=== PATIENT | male | born 1975 | race Caucasian/White ===

== ENCOUNTER 2019-04-30 16:24 | Emergency (ER) | payer MEDICAID ==
[~2019-04-30] VITALS: Ht 175.3 cm; Wt 99.8 kg
[~2019-04-30 16:24] MED LIST: ALBU0.0952 IH; FLUT1DSK2 IH
[2019-04-30 16:41] VITALS: BP 130/69
--- NOTE | 2019-04-30 17:01 | NUR ---
AAO X4 PT WHEEL CHAIR ASSISTED TO CHAIR B BIB SELF W/ C/O CHRONIC BL ANKLE PAIN/SWELLING WORSE TODAY. PER PT HE HAD INTERMITTENT RT ANKLE PAIN X 3 YRS AND LT ANKLE SWELLING X1 YR. 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
[2019-04-30] MEDS ORDERED: cefTRIAXone 1,000 MG in LIDOCAINE MPF 1% - 5 mL VIAL 2.1 ML IM ONE (17:50)
[2019-04-30] MEDS ORDERED: HYDROcodone/APAP 5/325 MG 1 TAB TAB PO ONE (18:10)
[2019-04-30] MEDS ORDERED: KETOROLAC 60 MG/2 ML VIAL IM ONE (18:10)
[2019-04-30 19:00] VITALS: BP 122/71
--- NOTE | 2019-04-30 19:00 | NUR ---
Patient discharged with v/s stable. Written and verbal after care instructions given and explained. Patient alert, oriented and verbalized understanding of instructions. Wheel Chair Assisted with to car. All questions addressed prior to discharge. ID band removed. Patient advised to follow up with PMD. Rx of [place], ibuprofen given. Patient educated on indication of medication including possible reaction and side effects. Opportunity to ask questions provided and answered.
== END 2019-04-30 19:00 | disposition home or self-care (01) ==
LOC: MED 16:24
DX: L03.116 Cellulitis of left lower limb (principal); L03.115 Cellulitis of right lower limb; F17.210 Nicotine dependence, cigarettes, uncomplicated; J45.909 Unspecified asthma, uncomplicated; F15.10 Other stimulant abuse, uncomplicated; Z79.899 Other long term (current) drug therapy
CPT/HCPCS: 73610; 73630; 96372; 99283; J0696; J1885; J2001

== ENCOUNTER 2019-05-03 11:51 | Inpatient (IN) | payer MEDICAID ==
[~2019-05-03] VITALS: Ht 170.2 cm; Wt 96.6 kg
[~2019-05-03 11:51] MED LIST changes: +INDOMETHACIN 25 MG CAP PO SCH
[2019-05-03 12:00] VITALS: BP 126/64
[2019-05-03] MEDS ORDERED: HYDR-5123 PO (12:13)
--- NOTE | 2019-05-03 12:18 | NUR ---
c/o bilateral lower leg pain/cellulitis off and on x 3 months with pain 10/10. patient states he was discharged from here 3 days ago and told to continue taking his antibiotics. erythema and edema to bilateral extremeties. full range of motion. palpable pedal pulses. cap refill < 2 seconds. aa0x4. bed is dwon, locked, bed rail x 1, ermd to see pt. candice
--- NOTE | 2019-05-03 12:35 | NUR ---
ER md dr Rodas at bedside
[2019-05-03 13:31] LABS: EOSINOPHILS # (AUTO) 0.3 K/uL (0-0.4); HEMOGLOBIN 11.9 g/dL (12.0-18.0); MEAN CORPUSCULAR HEMOGLOBIN 31 pg (27-31); MONOCYTES # (AUTO) 0.7 K/uL (0.8-1.0); NEUTROPHILS # (AUTO) 3.8 K/uL (1.8-7.7)
[2019-05-03 13:35] LABS: BASOPHILS % (AUTO) 0.5 % (0.0-2.0); EOSINOPHILS % (AUTO) 4.5 % (0.0-4.0); HEMATOCRIT 35.4 % (36-52); LYMPHOCYTES # (AUTO) 1.5 K/uL (2.0-11.5); LYMPHOCYTES % (AUTO) 23.1 % (20.5-51.1); MEAN CORPUSCULAR HGB CONC 34 g/dL (33-37); MEAN CORPUSCULAR VOLUME 92.3 fL (80-94); MONOCYTES % (AUTO) 11.5 % (1.7-9.3); NEUTROPHILS % (AUTO) 60.4 % (42.2-75.2); PLATELET COUNT (AUTO) 301 K/uL (140-450); RED BLOOD CELL COUNT(AUTO) 3.84 MIL/uL (4.20-6.10); RED CELL DISTRIBUTION WIDTH 13.9 % (11.6-13.7); WHITE BLOOD COUNT (AUTO) 6.3 K/uL (4.8-10.8)
[2019-05-03 14:09] LABS: ANION GAP 11.1 (8-16); CARBON DIOXIDE 28.2 mmol/L (21-32); CREATININE 0.7 mg/dL (0.7-1.3); POTASSIUM 3.3 mmol/L (3.5-5.1)
[2019-05-03 14:17] LABS: ALBUMIN 2.9 g/dL (3.4-5.0); TOTAL BILIRUBIN 0.2 mg/dL (0.0-1.0)
[2019-05-03] MEDS ORDERED: oxyCODONE/APAP 5/325 MG 1 TAB TAB PO ONE (14:45)
--- NOTE | 2019-05-03 16:34 | NUR ---
VSS AT THIS TIME. AA0X4
[2019-05-03] MEDS ORDERED: VANCOMYCIN 1GM/DEXT 5% PREMIX 200 ML IV ONE (17:10)
[2019-05-03] MEDS ORDERED: VANCOMYCIN PER PHARMACY MC PRN ×2 (17:10→20:55)
[2019-05-03] MEDS ORDERED: DOCUSATE SODIUM 100 MG GELCAP PO PRN (17:20)
[2019-05-03] MEDS ORDERED: ACETAMINOPHEN 325 MG TAB PO PRN (17:20)
[2019-05-03] MEDS ORDERED: ONDANSETRON 4 MG/2 ML VIAL IM/IVP PRN (17:20)
[2019-05-03] MEDS ORDERED: VANCOMYCIN 1,000 MG in DEXTROSE 5% 250 ML IV ONE (17:25)
[2019-05-03] MEDS ORDERED: VANCOMYCIN 1,000 MG VIAL ONE (17:25)
[2019-05-03] MEDS: NACL 0.9% 1,000 ML IV SCH (17:51)
--- NOTE | 2019-05-03 18:06 | NUR ---
Pt transferred to Med/Surg via 120A .
--- NOTE | 2019-05-03 18:15 | NUR ---
report given to christa johnson. pt vitals stable at htis moment.
[2019-05-03 19:30] VITALS: BP 125/64
--- NOTE | 2019-05-03 19:30 | NUR ---
Admitted from ER TO [facility] , with chief complaint of RECURRENT BILATERAL ANKLE PAIN WITH PAIN AND SWELLING , 43 y/o ,Male, Cooperative, AWAKE, A/OX4. RESPIRATION EVEN AND UNLABORED. IV VANCOMYCIN INFUSING AT 165 ML/HR, LEFT HAND G20. NOTED SEVERAL TATTOOS IN THE ARMS, LEGS AND BODY. BILATERAL FEET WITH SWELLING, TENDER TO TOUCH. PATIENT AT THIS TIME USES CRUTCHES WHEN WALKING DUE TO PAIN AND SWELLING OF FEET. HEAD TO TOE ASSESSMENT DONE WITH CHERRI CORONADO. SKIN INTACT.oriented to call light, bed, phone,television, bathroom, smoking policy, visiting hours, procedures, ID bracelet on. Belongings list checked.
--- NOTE | 2019-05-03 19:45 | NUR ---
Patient's Plan of Care was discussed and reviewed with ANALYSIS TESTER: MALIK
[2019-05-03 20:04] LABS: PROTHROMBIN TIME 9.5 secs (10.8-13.4)
[2019-05-03] MEDS ORDERED: POTASSIUM CHLORIDE 10 MEQ TABER PO SCH (20:30)
[2019-05-03] MEDS ORDERED: ALBUTEROL SULFATE/IPRATROPIU 3 ML SOL IH PRN (20:55)
[2019-05-03 21:19] LABS: MAGNESIUM 1.9 mg/dL (1.8-2.4)
[2019-05-03 22:02] LABS: FREE T4 (FREE THYROXINE) 0.96 ng/dL (0.76-1.46); THYROID STIMULATING HORMONE 1.86 uIU/mL (0.34-3.74)
[2019-05-03 22:14] LABS: PHOSPHORUS 4.4 mg/dL (2.5-4.9)
[2019-05-04] VITALS: BP 120/60
--- NOTE | 2019-05-04 | NUR ---
SLEEPING COMFORTABLY IN BED.
[2019-05-04 01:34] LABS: BARBITURATE, URINE NEG. ng/ml (NEG <=200); BENZODIAZEPINE, URINE NEG. ng/mL (NEG <=200); CANNABINOID, URINE NEG. ng/mL (NEG <=50); COCAINE, URINE NEG. ng/mL (NEG <=300); OPIATE, URINE POS. ng/mL (NEG <=2000); PHENCYCLIDINE SCREEN,URINE NEG. ng/mL (NEG <=25)
[2019-05-04 03:45] VITALS: BP 116/68
[2019-05-04 04:17] LABS: APPEARANCE,URINE CLEAR (CLEAR); BILIRUBIN,URINE NEGATIVE (NEGATIVE); BLOOD, URINE NEGATIVE (NEGATIVE); COLOR,URINE YELLOW (YELLOW); LEUKOCYTE ESTERASE ,URINE NEGATIVE (NEGATIVE); NITRITE, URINE NEGATIVE (NEGATIVE); UGLUCOSE NEGATIVE (NEGATIVE)
[2019-05-04] MEDS: MORPHINE SULFATE 4 MG/ML SYR IVP PRN ×4 (04:46→22:07)
[2019-05-04] MEDS: NACL 0.9% 1,000 ML IV SCH ×2 (04:46→15:24)
[2019-05-04 06:44] LABS: BASOPHILS % (AUTO) 0.4 % (0.0-2.0); EOSINOPHILS # (AUTO) 0.3 K/uL (0-0.4); EOSINOPHILS % (AUTO) 3.6 % (0.0-4.0); HEMATOCRIT 36.5 % (36-52); LYMPHOCYTES # (AUTO) 1.4 K/uL (2.0-11.5); LYMPHOCYTES % (AUTO) 18.5 % (20.5-51.1); MEAN CORPUSCULAR HEMOGLOBIN 30 pg (27-31); MEAN CORPUSCULAR HGB CONC 33 g/dL (33-37); MEAN CORPUSCULAR VOLUME 92.9 fL (80-94); MONOCYTES # (AUTO) 0.7 K/uL (0.8-1.0); MONOCYTES % (AUTO) 8.8 % (1.7-9.3); NEUTROPHILS # (AUTO) 5.3 K/uL (1.8-7.7); NEUTROPHILS % (AUTO) 68.7 % (42.2-75.2); PLATELET COUNT (AUTO) 301 K/uL (140-450); RED BLOOD CELL COUNT(AUTO) 3.93 MIL/uL (4.20-6.10); RED CELL DISTRIBUTION WIDTH 14.1 % (11.6-13.7); WHITE BLOOD COUNT (AUTO) 7.7 K/uL (4.8-10.8)
[2019-05-04 07:08] LABS: ANION GAP 11.5 (8-16); CREATININE 0.7 mg/dL (0.7-1.3); POTASSIUM 3.5 mmol/L (3.5-5.1)
[2019-05-04 07:18] LABS: MAGNESIUM 1.8 mg/dL (1.8-2.4); PHOSPHORUS 4.4 mg/dL (2.5-4.9)
[2019-05-04 07:20] LABS: CHOL/HDL RATIO 4.9 (1-4.5)
--- NOTE | 2019-05-04 07:20 | NUR ---
ABLE TO SLEEP WELL. ENDORSED TO AM NURSE FOR CONTINUITY OF CARE.
--- NOTE | 2019-05-04 07:21 | NUR ---
PT HAS HEADPHONES ON AND IS ASLEEP. NOTED THE IV ON L HAND AND INFUSING NS AT 100ML. BLE EXPOSED. PER RN, PT DOES NOT LIKE HIS FEET COVERED, EVEN SHEET HURTS HIS FEET. WILL CONTINUE TO MONITOR PT.
[2019-05-04 08:00] VITALS: BP 136/70
--- NOTE | 2019-05-04 08:00 | NUR ---
AXOX4. INTRODUCED MYSELF AND UPDATED THE BOARD. V/S WITHIN NORMAL RANGE. PAIN IS 8/10 IN BLE. WILL MEDICATE WITH MORNING MEDS. PER PT, HARDER TO AMBULATE. USES CRUTCHES/CANE TO AMBULATE. SKIN INTACT. BLE SWOLLEN AND HOT TO TOUCH. PT DOES HAVE A GASH/ABRASION ON HIS L CHEEK, JUVENTINO. IV HAS INFILTRATED. WILL START A NEW IV. PLAN FOR TODAY: NEED TO COLLECT STOOL SAMPLE FOR OCCULT BLOOD, CT W/ IV CONTRAST BLE.
--- NOTE | 2019-05-04 08:10 | NUR ---
PATIENT HAS BEEN SCREENED AND CATEGORIZED LOW NUTRITION RISK. PATIENT WILL BE SEEN WITHIN 7 DAYS OF ADMISSION. 05/10/[address]
[2019-05-04] MEDS: INDOMETHACIN 25 MG CAP PO SCH ×3 (08:54→16:59)
[2019-05-04] MEDS: LACTOBACILLUS RHAMNOSUS GG 1 EACH CAP PO SCH (08:54)
[2019-05-04] MEDS: methylPREDNISolone SS 40 MG/ML VIAL IVP SCH ×2 (08:58→21:38)
[2019-05-04] MEDS ORDERED: NON-FORMULARY ITEM (Fluticasone/Salmeterol* (Advair 250-50 Diskus*) 1 DSK) IH SCH (09:00)
--- NOTE | 2019-05-04 09:40 | NUR ---
ADMINISTERED ORAL MEDS. IV NOT WORKING, RESTARTED ANOTHER IV ACCESS 22G ON L HAND. ADMINISTERED ALL IV MEDS AND HEPARIN, SUBQ. ALSO STARTED AND 20G ON THE R FA FOR THE CT W/ IV CONTRAST. PT TOLERATED WELL. WILL CONTINUE TO MONITOR PT.
--- NOTE | 2019-05-04 09:51 | NUR ---
RADIOLOGY CALLED. WANT TO TAKE PT AT [address] W/ CONTRAST OF BLE. WILL HAVE CONSENT SIGNED. PT AWARE.
[2019-05-04 12:00] VITALS: BP 180/87
[2019-05-04 16:00] VITALS: BP 149/77
--- NOTE | 2019-05-04 16:05 | NUR ---
SW attempted to conduct assessment 2x. Patient is with medical staff. SW will attempt to follow up to complete assessment.
--- NOTE | 2019-05-04 19:22 | NUR ---
RECEIVED REPORT FROM DAYSHIFT RN AT BEDSIDE FOR CONTINUITY OF CARE, PT IN STABLE CONDITION.
--- NOTE | 2019-05-04 19:22 | NUR ---
ENDORSED PT TO THE MACHINE EGG WASHER NURSE AT BEDSIDE. PT IS ASLEEP. PT IN STABLE CONDITION.
[2019-05-04 20:00] VITALS: BP 122/63
--- NOTE | 2019-05-04 20:00 | NUR ---
CT OF ANGIO ON BILATERAL EXTREMITIES WAS D/C'D AT THIS TIME. PT IN BED WITH EYES CLOSED LISTENING TO HEADPHONES, V/S FOLLOWS T 97.3 P 68 R 18 B/P 122/63 02 97% ON ROOM AIR. IV SITE ON R HAND 22G INTACT, ASYMPTOMATIC AND RUNNING N/S AT 60MLS/HR. PT HAS NO S/S OF PAIN OR DISTRESS NOTED.
--- NOTE | 2019-05-04 21:00 | NUR ---
PT GIVEN ORDERED SOLUMEDROL AND HEPARIN. ALL REQUESTED NEEDS ATTENDED BY STAFF AND CALL COTTON IN REACH.
--- NOTE | 2019-05-04 21:00 | NUR ---
PT IN LOW BED SIDE RAILS UP X2, PT GIVEN DUE MEDS OF SOLUMEDROL AND HEPARIN. PT SAYS PAIN IS TOLERABLE AT THIS TIME.
--- NOTE | 2019-05-04 22:10 | NUR ---
PT BACK ON REGULAR DIET, SANDWICH GIVEN REQUESTED. PT C/O SEVERE GENERALIZE PAIN, PT GIVEN IVP MORPHINE, WILL MONITOR FOR EFFECT. BED LOW SIDE RAILS UP X2 AND CALL COTTON IN REACH. IV SITE ON R HAND INTACT AND RUNNING N/S AT 60MLS/HR ORDERED.
[2019-05-05] VITALS: BP 137/75
--- NOTE | 2019-05-05 00:40 | NUR ---
PT IN BED V/S FOLLOWS T 97 P 66 R 18 B/P 137/75 02 97% ON ROOM AIR. BED LOW SIDE RAILS UP X2 AND CALL COTTON IN REACH.
[2019-05-05] MEDS: MORPHINE SULFATE 4 MG/ML SYR IVP PRN (06:02)
--- NOTE | 2019-05-05 06:15 | NUR ---
PT GIVEN IVP MORPHINE ORDERED FOR SEVERE PAIN. AND COLACE FOR CONSTIPATION. PT REQUESTED A SANDWICH, HE WAS ABLE TO AMBULATE TO TOILET AND PROVIDE STOOL SAMPLE WHICH WAS SWIPED FOR OCCULT BLOOD AND SENT TO LAB.
--- NOTE | 2019-05-05 07:20 | NUR ---
RECEIVED BEDSIDE REPORT FROM AUTOMOTIVE WHOLESALE PARTS ADVISOR NURSE ALEXI. PT IS AWAKE AND ALERT, TALKING WITH DR SEBASTIAN AT THIS TIME. PT IS IN NO ACUTE DISTRESS, ON ROOM AIR, SKIN IS INTACT. BLE'S DO NOT APPEAR SWOLLEN OR RED, BUT PT IS C/O BLE PAIN. TWO IV SITES NOTED: L HAND 22 G, AND R FA 20 G. INFUSING NS 60 ML/HR. CALL LIGHT IS WITHIN REACH. WILL CONTINUE TO MONITOR.
[2019-05-05] MEDS: NACL 0.9% 1,000 ML IV SCH (07:26)
[2019-05-05 07:49] LABS: BASOPHILS % (AUTO) 0.1 % (0.0-2.0); EOSINOPHILS % (AUTO) 0.1 % (0.0-4.0); HEMOGLOBIN 13.7 g/dL (12.0-18.0); LYMPHOCYTES # (AUTO) 0.9 K/uL (2.0-11.5); LYMPHOCYTES % (AUTO) 7.4 % (20.5-51.1); MEAN CORPUSCULAR HEMOGLOBIN 31 pg (27-31); MEAN CORPUSCULAR HGB CONC 33 g/dL (33-37); MEAN CORPUSCULAR VOLUME 91.8 fL (80-94); MONOCYTES # (AUTO) 0.5 K/uL (0.8-1.0); NEUTROPHILS # (AUTO) 10.3 K/uL (1.8-7.7); NEUTROPHILS % (AUTO) 88.4 % (42.2-75.2); PLATELET COUNT (AUTO) 371 K/uL (140-450); RED BLOOD CELL COUNT(AUTO) 4.47 MIL/uL (4.20-6.10); RED CELL DISTRIBUTION WIDTH 13.8 % (11.6-13.7); WHITE BLOOD COUNT (AUTO) 11.7 K/uL (4.8-10.8)
[2019-05-05 07:58] LABS: ANION GAP 13.2 (8-16); CARBON DIOXIDE 26.8 mmol/L (21-32); CREATININE 0.8 mg/dL (0.7-1.3)
[2019-05-05 08:00] VITALS: BP 135/70
--- NOTE | 2019-05-05 09:55 | NUR ---
PT IS GETTING A CHEST XRAY AT THIS TIME
[2019-05-05] MEDS: LACTOBACILLUS RHAMNOSUS GG 1 EACH CAP PO SCH (10:22)
--- NOTE | 2019-05-05 10:22 | NUR ---
TOLERATED INCENTIVE SPIROMETRY THERAPY WELL WITHOUT INCIDENT ENCOURAGED PATIENT WITH ACKNOWLEDGEMENT TO USE INCENTIVE SPIROMETRY EVERY 1-2 HOURS WHILE AWAKE
[2019-05-05] MEDS: INDOMETHACIN 25 MG CAP PO SCH ×3 (10:23→16:14)
--- NOTE | 2019-05-05 10:38 | NUR ---
AM MEDS ADMINISTERED, PT TOLERATED WELL
[2019-05-05] MEDS: HYDROcodone/APAP 5/325 MG 1 TAB TAB PO PRN ×3 (10:59→22:26)
--- NOTE | 2019-05-05 13:07 | NUR ---
PT CONSENT OBTAINED FOR CT ANGIOGRAM OF ABDOMEN/PELVIS
--- NOTE | 2019-05-05 14:02 | NUR ---
PT TAKEN FOR CT ANGIOGRAM OF ABD/PELVIS Addendum: 05/05/19 at 1948 by Ivonne Beasley RN CHARTED ON WRONG PT Addendum: 05/05/19 at 1949 by Ivonne Beasley RN IGNORE LAST NOTE, THIS IS THE CORRECT PT.
--- NOTE | 2019-05-05 14:20 | NUR ---
PT IS BACK FROM CT ANGIO STUDY Addendum: 05/05/19 at 1948 by Ivonne Beasley RN CHARTED ON WRONG PT Addendum: 05/05/19 at 1949 by Ivonne Beasley RN IGNORE LAST NOTE, THIS IS THE CORRECT PT.
[2019-05-05 15:07] LABS: FOLIC ACID 14.7 ng/mL (>3.0)
[2019-05-05] MEDS ORDERED: MORPHINE SULFATE 4 MG/ML SYR IVP ONE (17:35)
--- NOTE | 2019-05-05 18:00 | NUR ---
PT IS HAVING US OF THE LLE AT THIS TIME.
[2019-05-05] MEDS ORDERED: CLINDAMYCIN 600 MG/4 ML VIAL ONE (18:19)
[2019-05-05] MEDS: CLINDAMYCIN 300 MG in DEXTROSE 5% 50 ML IV SCH (18:29)
--- NOTE | 2019-05-05 19:22 | NUR ---
PT ENDORSED TO INGREDIENT SPECIALIST NURSE IN STABLE CONDITION
--- NOTE | 2019-05-05 19:22 | NUR ---
RECEIVED ENDORSEMENT FORM GRACIE HARLEY DAYSHIFT NURSE AT BEDSIDE FOR CONTINUITY OF CARE, PT IN STABLE CONDITION.
[2019-05-05 20:00] VITALS: BP 133/72
--- NOTE | 2019-05-05 20:00 | NUR ---
PT IN LOW BED WITH SIDE RAILS UP X2. PT LOWER EXTREMITIES ELEVATED AND CRUTCHES AT BEDSIDE. IV SITE ON RIGHT AC AND LEFT HAND INTACT AND FLUSHED PATENT. V/S FOLLOWS T 98.9 P 65 R 18 B/P 133/72 02 100% ON ROOM AIR. ALL REQUESTED NEEDS ATTENDED AND CALL COTTON IN REACH.
--- NOTE | 2019-05-05 21:00 | NUR ---
PT RECEIVED ORDERED HEPARIN, FOR DVT PREVENTION, PLATELETS ARE 371.
--- NOTE | 2019-05-05 22:30 | NUR ---
PT C/O MODERATE PAIN IN LOWER LEGS, GIVEN NORCO PO/PRN ORDERED. ALL REQUESTED NEEDS ATTENDED BY STAFF.
--- NOTE | 2019-05-06 | NUR ---
PT GIVEN ORDERED CLEOCIN HUNG AND RUNNING ORDERED. IV SITE ON LEFT HAND INTACT AND FLUSHED PATENT. V/S FOLLOWS T 97.0 P 74 R 18 B/P 114/45 02 97% ON ROOM AIR.
[2019-05-06] MEDS ORDERED: CLINDAMYCIN 600 MG/4 ML VIAL ONE ×2 (00:04→06:24)
[2019-05-06] MEDS: CLINDAMYCIN 300 MG in DEXTROSE 5% 50 ML IV SCH ×4 (00:13→17:23)
--- NOTE | 2019-05-06 03:25 | NUR ---
PT WOKE UP AND C/O OF MODERATE PAIN 6/10 IN BILATERAL ANKLES , PT GIVEN 1 TAB NORCO PO/PRN. PT ALSO REQUESTED A SANDWICH WHICH WAS PROVIDED. IV SITE INTACT AND RUNNING FLUIDS ORDERED. BED LOW CALL COTTON IN REACH AND CRUTCHES AT BEDSIDE.
[2019-05-06 04:00] VITALS: BP 129/68
[2019-05-06] MEDS: HYDROcodone/APAP 5/325 MG 1 TAB TAB PO PRN ×5 (04:19→22:48)
[2019-05-06] MEDS: NACL 0.9% 1,000 ML IV SCH (07:16)
--- NOTE | 2019-05-06 07:25 | NUR ---
RECEIVED BEDSIDE REPORT FROM SOFTWARE DESIGN ENGINEER NURSE, PT IS ASLEEP, NO S/S OF ACUTE DISTRESS, NO SOB. FALL PRECAUTIONS IN PLACE. IV INFUSING NS 10 ML/HR VIA THE L HAND 20 G. SKIN IS INTACT. CALL LIGHT IS WITHIN REACH.
[2019-05-06 07:34] LABS: BASOPHILS # (AUTO) 0.1 K/uL (0.00-0.22); BASOPHILS % (AUTO) 0.7 % (0.0-2.0); EOSINOPHILS # (AUTO) 0.2 K/uL (0-0.4); EOSINOPHILS % (AUTO) 2.5 % (0.0-4.0); HEMATOCRIT 37.7 % (36-52); HEMOGLOBIN 12.6 g/dL (12.0-18.0); LYMPHOCYTES # (AUTO) 2.2 K/uL (2.0-11.5); LYMPHOCYTES % (AUTO) 25.7 % (20.5-51.1); MEAN CORPUSCULAR HEMOGLOBIN 31 pg (27-31); MEAN CORPUSCULAR HGB CONC 33 g/dL (33-37); MEAN CORPUSCULAR VOLUME 92.9 fL (80-94); MONOCYTES # (AUTO) 0.9 K/uL (0.8-1.0); MONOCYTES % (AUTO) 10.1 % (1.7-9.3); NEUTROPHILS # (AUTO) 5.3 K/uL (1.8-7.7); PLATELET COUNT (AUTO) 346 K/uL (140-450); RED BLOOD CELL COUNT(AUTO) 4.06 MIL/uL (4.20-6.10); RED CELL DISTRIBUTION WIDTH 14.2 % (11.6-13.7); WHITE BLOOD COUNT (AUTO) 8.7 K/uL (4.8-10.8)
[2019-05-06 07:44] LABS: ANION GAP 9.5 (8-16); CREATININE 0.8 mg/dL (0.7-1.3); POTASSIUM 3.5 mmol/L (3.5-5.1)
[2019-05-06 08:00] VITALS: BP 140/72
[2019-05-06 08:01] LABS: MAGNESIUM 1.9 mg/dL (1.8-2.4); PHOSPHORUS 4.2 mg/dL (2.5-4.9)
[2019-05-06] MEDS: LACTOBACILLUS RHAMNOSUS GG 1 EACH CAP PO SCH (08:44)
[2019-05-06] MEDS: INDOMETHACIN 25 MG CAP PO SCH ×3 (12:41→17:22)
--- NOTE | 2019-05-06 13:15 | NUR ---
PRN NORCO ADMINISTERED FOR LLE PAIN, WILL REASSESS WITHIN HOUR.
--- NOTE | 2019-05-06 15:20 | NUR ---
PT IS AWAKE, LOOKING AT HIS PHONE AND LISTENING TO HEADPHONES. NO S/S OF DISTRESS.
[2019-05-06 16:00] VITALS: BP 135/75
--- NOTE | 2019-05-06 17:33 | NUR ---
PT IS ASLEEP COMFORTABLY, IV CLEOCIN INFUSING.
--- NOTE | 2019-05-06 18:40 | NUR ---
PT C/O 710 PAIN IN THE LLE, REPORTS IMPROVED PAIN IN THE RLE. MEDICATED PT WITH PRN NORCO, WILL REASSESS.
--- NOTE | 2019-05-06 19:25 | NUR ---
REPORT RECEIVED FROM RN DAYSHIFT NURSE AT BEDSIDE, PT IN STABLE CONDITION.
--- NOTE | 2019-05-06 19:25 | NUR ---
PT ENDORSED TO ROLLER STRUCTURAL MILL NURSE IN STABLE CONDITION
--- NOTE | 2019-05-06 20:00 | NUR ---
PT IN BED NO C/O VOICED AT THIS TIME, LUNGS CLEAR BOWEL SOUNDS POSITIVE ALL 4 QUADS, V/S FOLLOWS T 97.9 P 73 R 18 B/P 139/73 02 97% ON ROOM AIR. IV FLUIDS N/S RUNNING AT 10MLS/HR. IV SITE ON RIGHT AC INTACT AND FLUSHED PATENT. IV SITE ON LEFT HAND INTACT AND FLUSHED PATENT. ALL REQUESTED NEEDS ATTENDED AND CALL COTTON IN REACH.
[2019-05-06] MEDS ORDERED: ATORVASTATIN 20 MG TAB PO SCH (21:00)
--- NOTE | 2019-05-06 21:00 | NUR ---
ALL SCHEDULED AND DUE MEDS GIVEN (LIPITOR AND HEPARIN). NO C/O VOICED BY PT BED LOW AND CALL COTTON IN REACH.
--- NOTE | 2019-05-06 22:48 | NUR ---
PT C/O MODERATE PAIN IN LEFT ANKLE, GIVEN PO/PRN NORCO, WILL MONITOR FOR EFFECT.
--- NOTE | 2019-05-07 | NUR ---
PT IN LOW BED ASLEEP. V/S FOLLOWS T 97.4 P 66 R 18 B/P 124/58 02 98% ON ROOM AIR. CLEOCIN HUNG AND RUNNING ORDERED.
[2019-05-07] MEDS: CLINDAMYCIN 300 MG in DEXTROSE 5% 50 ML IV SCH ×4 (00:30→17:43)
[2019-05-07 04:00] VITALS: BP 138/76
[2019-05-07] MEDS: HYDROcodone/APAP 5/325 MG 1 TAB TAB PO PRN ×4 (04:32→15:46)
--- NOTE | 2019-05-07 04:40 | NUR ---
PT WOKE UP WITH C/O OF MODERATE PAIN 01/22, PT GIVEN PO/PRN NORCO WELL REQUESTED SANDWICH. WILL MONITOR FOR PAIN RELIEF, BED LOW AND CALL COTTON IN REACH.
--- NOTE | 2019-05-07 06:32 | NUR ---
PT SLEEPING IN BED NO S/S OF PAIN OR DISTRESS NOTED. CLEOCIN HUN G AND RUNNING AT 100MLS/HR ORDERED.
[2019-05-07 06:44] LABS: ANION GAP 11.1 (8-16); CARBON DIOXIDE 29.5 mmol/L (21-32); POTASSIUM 3.6 mmol/L (3.5-5.1)
[2019-05-07] MEDS ORDERED: METH4TAB3 PO (06:45)
[2019-05-07 06:46] LABS: MAGNESIUM 1.9 mg/dL (1.8-2.4); PHOSPHORUS 4.1 mg/dL (2.5-4.9)
[2019-05-07 06:51] LABS: BASOPHILS # (AUTO) 0.1 K/uL (0.00-0.22); BASOPHILS % (AUTO) 0.7 % (0.0-2.0); EOSINOPHILS # (AUTO) 0.3 K/uL (0-0.4); EOSINOPHILS % (AUTO) 3.1 % (0.0-4.0); HEMATOCRIT 38.3 % (36-52); HEMOGLOBIN 12.9 g/dL (12.0-18.0); LYMPHOCYTES # (AUTO) 1.8 K/uL (2.0-11.5); LYMPHOCYTES % (AUTO) 21.6 % (20.5-51.1); MEAN CORPUSCULAR HEMOGLOBIN 31 pg (27-31); MEAN CORPUSCULAR HGB CONC 34 g/dL (33-37); MEAN CORPUSCULAR VOLUME 92.7 fL (80-94); MONOCYTES # (AUTO) 0.9 K/uL (0.8-1.0); MONOCYTES % (AUTO) 10.4 % (1.7-9.3); NEUTROPHILS # (AUTO) 5.5 K/uL (1.8-7.7); NEUTROPHILS % (AUTO) 64.2 % (42.2-75.2); PLATELET COUNT (AUTO) 360 K/uL (140-450); RED BLOOD CELL COUNT(AUTO) 4.13 MIL/uL (4.20-6.10); RED CELL DISTRIBUTION WIDTH 14.3 % (11.6-13.7); WHITE BLOOD COUNT (AUTO) 8.5 K/uL (4.8-10.8)
[2019-05-07] MEDS: NACL 0.9% 1,000 ML IV SCH (07:16)
--- NOTE | 2019-05-07 07:30 | NUR ---
RECEIVED REPORT FROM BLADE GRADER OPERATOR NURSE. PT AROUSABLE TO NAME, AAOX4, NO C/O PAIN AT THIS TIME. IV ON LT HAND 22 GA AND RT FA 20 GA, BOTH FLUSHING WITH NO RESISTANCE. RESPIRATIONS EVEN AND UNLABORED ON RA. ABD SOFT, BS ACTIVE THROUGHOUT. PT ON FALL RISK PRECAUTIONS. SAFETY MEASURES IN PLACE, CALL LIGHT WITHIN REACH. REVIEWED POC WITH PT, PT VERBALIZED UNDERSTANDING.
[2019-05-07] MEDS: LACTOBACILLUS RHAMNOSUS GG 1 EACH CAP PO SCH (08:30)
[2019-05-07] MEDS: INDOMETHACIN 25 MG CAP PO SCH ×3 (08:31→17:43)
--- NOTE | 2019-05-07 08:33 | NUR ---
PT GIVEN MORNING MEDICATIONS PER ORDER AND NORCO PER ORDER FOR PAIN RATE LEVEL 5/10 TO BILATERAL FEET. WILL REASSESS WITHIN 1 HOUR.
--- NOTE | 2019-05-07 10:40 | NUR ---
PT TOLERATED PHYSICAL THERAPY WELL. PT GIVEN ICE PACK FOR LT LEG FOR LEVEL 2/10 PAIN. PER PT "PAIN IS TOLERABLE".
--- NOTE | 2019-05-07 11:20 | NUR ---
Psychiatric Nurse Note: Per patient, he is in agreement with home health services for physical therapy and is also agreeable with any home health that is able to accept his health insurance ([facility]). I confirmed with patient his home address, [id number] [address]. I faxed inquiry to [facility], phone number . I faxed 's order for fww to [facility], phone number , Darrell . Addendum: 05/07/19 at 1127 by Amberly NEVES I faxed physical therapy notes, HNP, and face sheet to [facility].
--- NOTE | 2019-05-07 13:16 | NUR ---
Tool Grinder Operator Surface Note: Per Darrell from [facility] , he will deliver fww today around 3pm. Per Erica from [facility] , Henrry is still reviewing inquiry and will let me know if they can accept patient or not.
[2019-05-07] MEDS ORDERED: NAPR-54 PO (14:56)
[2019-05-07 16:00] VITALS: BP 130/76
--- NOTE | 2019-05-07 16:00 | NUR ---
WALKER DELIVERED IN PT'S ROOM, RECEIVED BY PATIENT.
--- NOTE | 2019-05-07 16:58 | NUR ---
Solar Installation Crew Supervisor Note: I called and spoke with Erica from [facility] multiple times today during the day to inquire if they can accept patient or not. Erica stated person who is reviewing inquiry (Henrry) has not told her if they can accept patient or not. Erica told me Henrry is currently out of office. Solar Installation Crew Supervisor and/or Supervisor Mapping will follow up with [facility] tomorrow morning.
[2019-05-07] MEDS ORDERED: PNEUMOCOCCAL VACCINE 23 MCG/0.5 ML VIAL IMVAC SCH (17:35)
--- NOTE | 2019-05-07 17:45 | NUR ---
ROUTINE MEDICATIONS PER ORDER GIVEN, PNA VACC ADMINISTERED TO RT DELTOID. PT IS AWARE TO NOTIFY NURSE WITH ANY ABNORMAL SYMPTOMS.
--- NOTE | 2019-05-07 18:40 | NUR ---
PT HAS BEEN DISCHARGED. ALL PAPERWORK SIGNED, ALL QUESTIONS ANSWERED. ALL BELONGINGS IN PT POSSESSION. PT IS AWARE THAT PRESCRIPTIONS ARE SENT TO PHARMACY. BOTH IVS DISCONTINUED WITH CANNULA INTACT. WRISTBANDS REMOVED. PT TRANSFERRED OUT OF UNIT VIA WHEELCHAIR. FAMILY AND RN AT SIDE. PT IN STABLE CONDITION.
--- NOTE | 2019-05-08 14:22 | NUR ---
Wood Car Builder Note: Per Henrry from [facility] , they will send a nurse to patient's home.
== END 2019-05-07 18:40 | disposition home or self-care (01) | DRG 383 ==
LOC: MED 11:51 → MTU 17:17
PROVIDERS: ADMIT General Practice; ATTEND General Practice
PROC: 3E0234Z Introduction of Serum, Toxoid and Vaccine into Muscle, Percutaneous Approach (ICD-10-PCS; principal; 2019-05-07)
DX: L03.115 Cellulitis of right lower limb (principal); I50.43 Acute on chronic combined systolic (congestive) and diastolic (congestive) heart failure; E44.0 Moderate protein-calorie malnutrition; I42.9 Cardiomyopathy, unspecified; L03.116 Cellulitis of left lower limb; I11.0 Hypertensive heart disease with heart failure; I73.9 Peripheral vascular disease, unspecified; F15.10 Other stimulant abuse, uncomplicated; F10.10 Alcohol abuse, uncomplicated; D64.9 Anemia, unspecified; E87.6 Hypokalemia; Y90.9 Presence of alcohol in blood, level not specified; J45.909 Unspecified asthma, uncomplicated; F19.10 Other psychoactive substance abuse, uncomplicated; F17.210 Nicotine dependence, cigarettes, uncomplicated; E66.9 Obesity, unspecified; D72.829 Elevated white blood cell count, unspecified; I35.1 Nonrheumatic aortic (valve) insufficiency; Z68.33 Body mass index [BMI] 33.0-33.9, adult; Z82.5 Family history of asthma and other chronic lower respiratory diseases; Z23 Encounter for immunization; M10.9 Gout, unspecified
CPT/HCPCS: 36415; 71045; 73702; 76536; 80048; 80053; 80305; 81003; 82150; 82272; 82607; 82728; 82746; 83036; 83540; 83605; 83690; 83735; 83880; 84100; 84134; 84439; 84443; 84484; 84550; 85025; 85045; 85610; 85651; 85730; 86140; 87040; 87081; 90732; 93925; 93970; 97110; 97116; 97161-GP; 97530; 99285; J0696; J1644; J2270; J2920; J3370; J3490; J7030; J7060; Q0092; Q9967

== ENCOUNTER 2019-10-30 11:10 | Emergency (ER) | payer MEDICAID, OTHER ==
[~2019-10-30] VITALS: Ht 175.3 cm; Wt 101.6 kg
[~2019-10-30 11:10] MED LIST changes: +HYDR-5123 PO; -INDOMETHACIN 25 MG CAP PO SCH; +METH4TAB3 PO; +NAPR-54 PO
[2019-10-30 11:21] VITALS: BP 136/86
--- NOTE | 2019-10-30 11:48 | NUR ---
DR FIGUEROA EVALUATING PT AT BEDSIDE
[2019-10-30] MEDS ORDERED: predniSONE 20 MG TAB PO ONE (11:50)
--- NOTE | 2019-10-30 11:50 | NUR ---
Pt c/o bilateral foot/ankle pain and right elbow right wrist. Pt dx with Gout. 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
[2019-10-30 11:56] VITALS: BP 136/86
--- NOTE | 2019-10-30 11:56 | NUR ---
Patient discharged with v/s stable. Written and verbal after care instructions given and explained. Patient alert, oriented and verbalized understanding of instructions. Ambulatory with steady gait. All questions addressed prior to discharge. ID band removed. Patient advised to follow up with PMD. Rx of PREDNISONE,ALBUTEROL given. Patient educated on indication of medication including possible reaction and side effects. Opportunity to ask questions provided and answered.
== END 2019-10-30 11:56 | disposition home or self-care (01) ==
LOC: MED 11:10
DX: M10.9 Gout, unspecified (principal); J45.909 Unspecified asthma, uncomplicated; Z79.899 Other long term (current) drug therapy
CPT/HCPCS: 99282; J7512

== ENCOUNTER 2020-02-08 14:54 | Emergency (ER) | payer OTHER ==
[~2020-02-08] VITALS: Ht 172.7 cm; Wt 108.9 kg
--- NOTE | 2020-02-08 15:41 | NUR ---
dr. kimball at bedside.
[2020-02-08 15:42] VITALS: BP 163/84
[2020-02-08] MEDS ORDERED: NACL 0.9% 1,000 ML IV ONE (15:45)
--- NOTE | 2020-02-08 16:00 | NUR ---
44 y/m presents to ed with slurred speech, co chest pain 10/10, nausea, numbness to l side, tipping machine operator automatic strength equal b, face symmetrical. pt also reports nausea. rr even and unlabored. pt appears disheveld in grease, reports he was working on car. pt denies drugs or alcohol. pmh- leaky valve, gout rx- can not recall rx
--- NOTE | 2020-02-08 16:05 | NUR ---
lab at bedside
--- NOTE | 2020-02-08 16:15 | NUR ---
pt unable to provide urine at this time.
[2020-02-08 16:21] LABS: BASOPHILS # (AUTO) 0.1 K/uL (0.00-0.22); BASOPHILS % (AUTO) 0.5 % (0.0-2.0); EOSINOPHILS # (AUTO) 0.2 K/uL (0-0.4); EOSINOPHILS % (AUTO) 2.3 % (0.0-4.0); HEMATOCRIT 41.7 % (36-52); LYMPHOCYTES # (AUTO) 1.2 K/uL (2.0-11.5); LYMPHOCYTES % (AUTO) 11.8 % (20.5-51.1); MEAN CORPUSCULAR HEMOGLOBIN 31 pg (27-31); MEAN CORPUSCULAR HGB CONC 34 g/dL (33-37); MEAN CORPUSCULAR VOLUME 92.4 fL (80-94); MONOCYTES # (AUTO) 1.2 K/uL (0.8-1.0); MONOCYTES % (AUTO) 11.2 % (1.7-9.3); NEUTROPHILS # (AUTO) 7.6 K/uL (1.8-7.7); NEUTROPHILS % (AUTO) 74.2 % (42.2-75.2); PLATELET COUNT (AUTO) 323 K/uL (140-450); RED BLOOD CELL COUNT(AUTO) 4.51 MIL/uL (4.20-6.10); RED CELL DISTRIBUTION WIDTH 14.3 % (11.6-13.7); WHITE BLOOD COUNT (AUTO) 10.3 K/uL (4.8-10.8)
[2020-02-08 16:37] LABS: ANION GAP 12.6 (8-16); ASPARTATE AMINOTRANSFERASE 49 U/L (15-37); CHLORIDE 102 mmol/L (98-107); CREATININE 1.1 mg/dL (0.6-1.3); GFR ARICAN-AMERICAN 93 mL/min (>90); GLUCOSE 103 mg/dL (74-106); POTASSIUM 3.6 mmol/L (3.5-5.1); SODIUM SERUM 140 mmol/L (136-145); TOTAL BILIRUBIN 0.6 mg/dL (0.0-1.0); UREA NITROGEN, BLOOD 22 mg/dL (7-18)
[2020-02-08 16:38] LABS: ACETAMINOPHEN < 0.5 ug/ml (10-30); SALICYLATE < 2.8 mg/dL (2.8-20.0)
--- NOTE | 2020-02-08 18:12 | NUR ---
PT ASLEEP IN BED, RR EVEN AND UNLABORED.
--- NOTE | 2020-02-08 19:11 | NUR ---
RECEIVED REPORT FROM EFRAIN HARLEY
--- NOTE | 2020-02-08 19:20 | NUR ---
Pt report given to CHERRI MERCADO. Transfer of care at this time.
--- NOTE | 2020-02-08 19:35 | NUR ---
PT ASKED TO PROVIDE UA STILL DENIES NEED TO GO. PT REMAINS ON MONITOR. V/S WNL.
--- NOTE | 2020-02-08 20:10 | NUR ---
URINE COLLECTED AND SENT TO LAB.
[2020-02-08 20:17] VITALS: BP 135/72
--- NOTE | 2020-02-08 20:20 | NUR ---
PT ASKED TO CLEAN UP, BASIN AND TOWELS PROVIDED AND AT BEDSIDE
--- NOTE | 2020-02-08 21:06 | NUR ---
PT REMAINS ON MONITOR NO DISTRESS NOTED, GRANDSON REMAINS AT BEDSIDE WITH PT.
--- NOTE | 2020-02-08 21:17 | NUR ---
PT BECAME VERY HOSTILE, VERBALLY AGGRESSIVE AND THREATENING. REFUSED TO ALLOW RN TO REMOVE IV, PT TOOK OUT OF HAND HIMSELF. PT BEGAN THROWING THE BEDSIDE TABLE AND WATER BASIN ON THE FLOOR. BARBARA REDDY WAS ALREADY HERE FOR A PREBOOK OF ANOTHER PT AND INTERVENED. PT WAS ESCORTED OUT OF ED BY PD. PT DID SIGN AMA PAPERWORK FOR INSURANCE SALESPERSONGUILLE.
[2020-02-08 21:18] LABS: BARBITURATE, URINE NEGATIVE ng/ml (NEG <=200); BENZODIAZEPINE, URINE POSITIVE ng/mL (NEG <=200); CANNABINOID, URINE NEGATIVE ng/mL (NEG <=50); COCAINE, URINE NEGATIVE ng/mL (NEG <=300); OPIATE, URINE NEGATIVE ng/mL (NEG <=2000); PHENCYCLIDINE SCREEN,URINE POSITIVE ng/mL (NEG <=25)
--- NOTE | 2020-02-08 21:30 | NUR ---
Patient does not wish to proceed with medical care recommended by . Patient given information related to possible complications, up to and including , which could occur as a result of leaving hospital at this time. Patient verbalizes understanding of risks involved leaving against medical advice. Patient has signed AMA form.
== END 2020-02-08 21:30 | disposition left against medical advice (07) ==
LOC: MED 14:54
DX: R41.82 Altered mental status, unspecified (principal); I51.89 Other ill-defined heart diseases; M10.9 Gout, unspecified; Z79.899 Other long term (current) drug therapy
CPT/HCPCS: 36415; 80053; 80305; 85025; 93005; 99284; G0480; G0482; J7030

== ENCOUNTER 2022-02-27 12:41 | Emergency (ER) | payer OTHER ==
[~2022-02-27] VITALS: Ht 175.3 cm; Wt 99.8 kg
[~2022-02-27 12:41] MED LIST changes: +HYDR-5080 PO; -HYDR-5123 PO
--- NOTE | 2022-02-27 12:43 | NUR ---
DR VALDEZ AND RT AT BEDSIDE
[2022-02-27] MEDS ORDERED: IPRATROPIUM 0.02% 0.5 MG/2.5 ML NEBU INH ONE (12:50)
[2022-02-27] MEDS ORDERED: DEXAMETHASONE 10 MG/ML VIAL IVP ONE (12:50)
[2022-02-27] MEDS ORDERED: ALBUTEROL 0.083% 2.5 MG/3 ML NEBU INH ONE (12:50)
[2022-02-27 12:51] VITALS: BP 139/59
--- NOTE | 2022-02-27 13:08 | NUR ---
46/M BIBA FROM HOME. PER EMS PATIENT CALLED 911 STATING HE HAS HAD WORSENING SOB SINCE THIS MORNING. EMS STATES PATIENT O2 SATS 82% ON SCENE, PT RECEIVED ONE ALBUTEROL TX EN ROUTE TO ED, O2 SAT 99% UPON ARRIVAL TO ED. PATIENT REPORTS "FEELING UNDER THE WEATHER" X2 WEEKS WITH PRODUCTIVE COUGH. PATIENT ADMITS TO USE OF METH 2 DAYS AGO AND REPORTS "TAKING A HIT OF WEED" LAST NIGHT. PATIENT DENIES FEVERS, CP OR RECENT SICK CONTACTS.
[2022-02-27 13:10] LABS: BASOPHILS # (AUTO) 0.1 K/uL (0.00-0.22); BASOPHILS % (AUTO) 0.7 % (0.0-2.0); EOSINOPHILS # (AUTO) 0.1 K/uL (0-0.4); EOSINOPHILS % (AUTO) 1.3 % (0.0-4.0); HEMATOCRIT 39.2 % (36-52); HEMOGLOBIN 13.1 g/dL (12.0-18.0); LYMPHOCYTES # (AUTO) 2.2 K/uL (2.0-11.5); LYMPHOCYTES % (AUTO) 21.7 % (20.5-51.1); MEAN CORPUSCULAR HEMOGLOBIN 31 pg (27-31); MEAN CORPUSCULAR HGB CONC 33 g/dL (33-37); MEAN CORPUSCULAR VOLUME 93.3 fL (80-94); MONOCYTES # (AUTO) 1.2 K/uL (0.8-1.0); MONOCYTES % (AUTO) 11.7 % (1.7-9.3); NEUTROPHILS # (AUTO) 6.7 K/uL (1.8-7.7); NEUTROPHILS % (AUTO) 64.6 % (42.2-75.2); PLATELET COUNT (AUTO) 316 K/uL (140-450); RED CELL DISTRIBUTION WIDTH 14.4 % (11.6-13.7); WHITE BLOOD COUNT (AUTO) 10.4 K/uL (4.8-10.8)
[2022-02-27 13:20] VITALS: BP 113/63
[2022-02-27 13:32] LABS: ALBUMIN 3.5 g/dL (3.4-5.0); ANION GAP 8.3 (8-16); CARBON DIOXIDE 31.4 mmol/L (21-32); CREATININE 0.8 mg/dL (0.6-1.3); POTASSIUM 3.7 mmol/L (3.5-5.1); TOTAL BILIRUBIN 0.1 mg/dL (0.0-1.0)
[2022-02-27] MEDS ORDERED: ALBU0.0912 IH (16:38)
[2022-02-27] MEDS ORDERED: PRED20TA5 PO (16:38)
[2022-02-27] MEDS ORDERED: [UNRECOGNIZED DRUG - CODE] MC (16:54)
[2022-02-27] MEDS ORDERED: PRON INH (16:54)
--- NOTE | 2022-02-27 16:55 | NUR ---
PT YELLING AT STAFF, PULLED IV OUT ON HIS OWN. NO ACTIVE BLEEDING. PAPERWORK GIVEN TO PT. PT VERBALIZED ACI.
== END 2022-02-27 16:55 | disposition home or self-care (01) ==
LOC: MED 12:41
DX: J45.901 Unspecified asthma with (acute) exacerbation (principal); F17.210 Nicotine dependence, cigarettes, uncomplicated
CPT/HCPCS: 36415; 71045; 80053; 83880; 84484; 85025; 93005; 94640; 96374; 99285; J1100; J7613